=== PATIENT | female | born 1975 | race American Indian/Alaskan Native ===

== ENCOUNTER 2018-05-10 09:34 | Day surgery (SDC) | payer BC ==
[2018-05-10 10:37] VITALS: TEMP 98
[2018-05-10] MEDS ORDERED: ceFAZolin IV 1 gm in Dextrose 0 GM/0 ML BAG IVPB ONE (14:55)
[2018-05-10] MEDS ORDERED: Lidocaine/Epinephrine 1% 1:100000 10 ML IJ ONE (14:55)
[2018-05-10] MEDS ORDERED: Bupivacaine 0.25% 20 ML INJ IJ ONE (14:55)
[2018-05-10] MEDS ORDERED: Oxycodone/Acetaminophen 5/325 mg Tab PO PRN (15:45)
[2018-05-10 15:47] VITALS: BP 154/71; PULSE 80; RESP 16; O2SAT 100
--- NOTE | 2018-05-10 15:49 | PCM.SURG1 ---
Surgeon's Initial Post Op Note - Surgeon's Notes Surgeon: Dr. Norris Last Putter Away: vijay Vee PGY3 Type of Anesthesia: Local Pre-Operative Diagnosis: R Breast mas Operative Findings: R breast cyst [id number] Post-Operative Diagnosis: SAme Operation Performed: Excision of R breast mass Specimen/Specimens Removed: R breast cyst [id number] Estimated Blood Loss: EBL {In ML}: 10 Blood Products Given: N/A Drains Used: No Drains Post-Op Condition: Good Date of Surgery/Procedure: 05/10/18 Time of Surgery/Procedure: 15:48
--- NOTE | 2018-05-11 05:16 | OP ---
PROCEDURE DATE: 05/10/2018 PREOPERATIVE DIAGNOSIS: Sebaceous cyst of the right breast. POSTOPERATIVE DIAGNOSIS: Sebaceous cyst of the right breast. PROCEDURES DONE: 1. Excision of the sebaceous cyst of the right breast, 2 x 2 x 1 cm in size. 2. Layered closure of the wound, 2 x 1 x 1 cm size. ANESTHESIA: Local anesthesia with monitoring. COMPLICATIONS: None. DRAINS: None. PATHOLOGY: Sebaceous cyst of the right breast was sent to the pathology. DESCRIPTION OF PROCEDURE: The patient had approximately 2 x 1 cm sebaceous cyst of the right breast, and on intraoperative steps, this is a 42-year-old female who was diagnosed with sebaceous cyst of the right breast, and the patient was consented for excision, brought to the OR and placed supine on the operating table. After monitoring, the right breast was prepped and draped in the usual sterile fashion. Local anesthesia was injected and an elliptical incision was made. Upper and lower flap was created and sebaceous cyst was completely excised, and it was sent off the table for the pathology, and the wound was irrigated and hemostasis was achieved. The wound was approximately 2 x 1 x 1 cm in size, and now the wound was closed in multiple layers, deep subcu with 2-0 Vicryl, superficial subcu with 0 Vicryl, and the skin with 4-0 Monocryl and dry sterile dressing was applied. The patient tolerated the procedure well. Count of the instruments and gauze was correct. There was no apparent complication. The patient was sent to the Postanesthesia Care Unit in stable condition. Jamarcus Norris MD
== END 2018-05-10 16:08 | disposition home or self-care (01) ==
LOC: C.SDS 09:34
PROVIDERS: ATTEND Surgery Surgical Critical Care
DX: N60.01 Solitary cyst of right breast (principal)